=== PATIENT | male | born 1960 | race Two or more races ===

== ENCOUNTER 2022-02-23 12:30 | Inpatient (IN) | payer OTHER ==
[~2022-02-23] VITALS: Ht 172.7 cm; Wt 87.1 kg
[2022-02-23] MEDS ORDERED: METFORMIN HCL500 M3 PO (14:53)
[2022-02-23] MEDS ORDERED: COZAAR25 MG PO (14:53)
[2022-03-07] MEDS ORDERED: MEDROLPACK PO (10:02)
[2022-03-07] MEDS ORDERED: PERCOCET 5-3251 EACH PO (10:02)
[2022-03-07] MEDS ORDERED: AMOX-CLAV 875-1 EACH PO (10:02)
[2022-03-07] MEDS ORDERED: NEURONTIN800 MG PO (10:02)
[2022-03-07] MEDS ORDERED: COLACE100 MG PO (10:02)
== END 2022-03-09 22:08 | DRG 455 ==
LOC: SURG 03-07 06:40 → O/R 03-07 06:40 → SURH 03-07 11:15 → SURG 03-07 13:58
PROVIDERS: ADMIT Orthopaedic Surgery Orthopaedic Surgery of the Spine; ATTEND Orthopaedic Surgery Orthopaedic Surgery of the Spine
PROC: 0SG0071 Fusion of Lumbar Vertebral Joint with Autologous Tissue Substitute, Posterior Approach, Posterior Column, Open Approach (ICD-10-PCS; 2022-03-07)
PROC: 0ST20ZZ Resection of Lumbar Vertebral Disc, Open Approach (ICD-10-PCS; 2022-03-07)
PROC: 0QB30ZZ Excision of Left Pelvic Bone, Open Approach (ICD-10-PCS; 2022-03-07)
PROC: 07DR3ZZ Extraction of Iliac Bone Marrow, Percutaneous Approach (ICD-10-PCS; 2022-03-07)
PROC: 4A12X4Z Monitoring of Cardiac Electrical Activity, External Approach (ICD-10-PCS; 2022-03-07)
PROC: XRGB0R7 Fusion of Lumbar Vertebral Joint using Custom-Made Anatomically Designed Interbody Fusion Device, Open Approach, New Technology Group 7 (ICD-10-PCS; principal; 2022-03-07 11:15)
DX: M43.16 Spondylolisthesis, lumbar region (principal); M48.062 Spinal stenosis, lumbar region with neurogenic claudication; E11.9 Type 2 diabetes mellitus without complications; I10 Essential (primary) hypertension; Z72.0 Tobacco use; Z79.84 Long term (current) use of oral hypoglycemic drugs; Z20.822 Contact with and (suspected) exposure to COVID-19

== ENCOUNTER 2025-02-09 09:46 | Emergency (ER) | payer OTHER ==
[~2025-02-09] VITALS: Ht 175.3 cm; Wt 83.0 kg
[~2025-02-09 09:46] MED LIST: AMOX-CLAV 875-1 EACH PO; COLACE100 MG PO; COZAAR25 MG PO; MEDROLPACK PO; METFORMIN HCL500 M3 PO; NEURONTIN800 MG PO; PERCOCET 5-3251 EACH PO
[2025-02-09] MEDS ORDERED: DOXYCYCLINE HY100 MG PO (12:40)
[2025-02-09] MEDS ORDERED: IBUPROFEN800 MG PO (12:40)
== END 2025-02-09 12:50 | disposition home or self-care (01) ==
LOC: ER 09:46
DX: L02.415 Cutaneous abscess of right lower limb (principal); I10 Essential (primary) hypertension; E78.49 Other hyperlipidemia; E11.9 Type 2 diabetes mellitus without complications; Z79.84 Long term (current) use of oral hypoglycemic drugs